=== PATIENT | male | born 1965 | race Caucasian/White ===

== ENCOUNTER 2019-07-24 16:43 | Observation (INO) ==
[2019-07-24] MEDS ORDERED: Naloxone 0.4 MG/ML INJ IVP PRN (18:25)
[2019-07-24] MEDS ORDERED: Ondansetron 4 MG/2 ML VIAL IVP PRN (18:25)
[2019-07-24] MEDS ORDERED: Nitroglycerin 0.4 MG TAB.SUBL SL PRN (18:27)
[2019-07-24] MEDS: Morphine Sulfate 2 MG/ML SYRINGE IVP PRN (21:26)
[2019-07-25] MEDS: Morphine Sulfate 2 MG/ML SYRINGE IVP PRN ×3 (00:27→09:59)
[2019-07-25] MEDS: *HR* Heparin 5,000 UNIT/ML VIAL SQ SCH ×2 (04:18→17:09)
[2019-07-25 06:48] LABS: Troponin I < 0.03 ng/mL (< 0.04)
[2019-07-25 06:52] LABS: BUN/Creatinine Ratio 13 (6-26); Blood Urea Nitrogen 16 mg/dL (6-20); Calcium 8.7 mg/dL (8.6-10.3); Carbon Dioxide 28 mEq/L (23-29); Chloride 108 mEq/L (98-107); Glucose 98 mg/dL (70-105); Osmolality,Calculated 291 (280-300); Potassium 4.1 mEq/L (3.5-5.1); Sodium 140 mEq/L (136-145); eGFR For African Americans > 60 (> 60); eGFR For Non-African Americans 60 (> 60)
[2019-07-25] MEDS ORDERED: Regadenoson 0.4 MG/5 ML SYRINGE IVP ONE (08:18)
[2019-07-25] MEDS ORDERED: Aspirin 81 MG TAB.CHEW PO SCH (09:00)
[2019-07-25] MEDS: predniSONE 20 MG TABLET PO SCH (13:53)
[2019-07-25] MEDS: Tiotropium 18 MCG inhalation IH SCH (15:39)
[2019-07-25] MEDS ORDERED: traZODone 50 MG TABLET PO SCH (21:00)
[2019-07-26] MEDS: *HR* Heparin 5,000 UNIT/ML VIAL SQ SCH (05:07)
[2019-07-26] MEDS: Tiotropium 18 MCG inhalation IH SCH (07:43)
[2019-07-26] MEDS: predniSONE 20 MG TABLET PO SCH (07:57)
[2019-07-26 08:03] VITALS: BP 132/84
[2019-07-26] MEDS ORDERED: Loratadine 10 MG TABLET PO SCH (09:00)
[2019-07-26] MEDS ORDERED: Aspirin Enteric Coated 81 MG Tablet PO SCH (09:00)
== END 2019-07-26 12:28 | disposition home or self-care (01) ==
LOC: 3BNU → SUATTDRO 18:14
PROVIDERS: ADMIT Internal Medicine; ATTEND Internal Medicine